=== PATIENT | female | born 1960 | race Two or more races ===

== ENCOUNTER 2018-07-15 09:39 | Emergency (ER) | payer SELFPAY ==
[~2018-07-15] VITALS: Ht 160 cm; Wt 93.0 kg
[2018-07-15 09:53] VITALS: BP 156/98
[2018-07-15] MEDS ORDERED: Tylenol #3 tab (300mg/30mg) PO ONE (10:00)
--- NOTE | 2018-07-15 10:25 | Emergency Room Report ---
History of Present Illness General Chief Complaint: Multiple Trauma/Fall Source: Patient, Family Member Present Illness HPI 58-year-old female presents ED for evaluation. Patient presents status post trip and fall today. Landing on her right elbow. Denies hitting her head or LOC. Complaining of right elbow pain. Throbbing, 10 out of 10, nonradiating. Denies any other injuries. No other aggravating relieving factors. Denies any other associated symptoms Allergies: Coded Allergies: No Known Allergies (Unverified , 07/15/18) Patient History Past Medical History: HTN Past Surgical History: none Pertinent Family History: none Social History: Denies: smoking, alcohol use, drug use Last Menstrual Period: yrs ago Now: No Immunizations: UTD Reviewed Nursing Documentation: PMH: Agreed; PSxH: Agreed Nursing Documentation-PMH Past Medical History: No History, Except For Hx Hypertension: Yes Review of Systems All Other Systems: negative except mentioned in HPI Physical Exam Vital Signs Date Time Temp Pulse Resp B/P (MAP) Pulse Ox O2 Delivery O2 Flow Rate FiO2 07/15/18 09:46 98.1 85 18 164/109 96 Room Air Sp02 EP Interpretation: reviewed, normal General Appearance: no apparent distress, alert, GCS 15, non-toxic Head: normocephalic Eyes: bilateral eye normal inspection, bilateral eye PERRL ENT: normal ENT inspection Neck: normal inspection Respiratory: normal inspection Cardiovascular #1: normal inspection Gastrointestinal: normal inspection Rectal: deferred Genitourinary: no CVA tenderness Musculoskeletal: decreased range of motion - R elbow, tender Neurologic: alert, oriented x3, responsive, motor strength/tone normal, sensory intact, speech normal Psychiatric: normal inspection Skin: normal inspection Lymphatic: normal inspection Medical Decision Making Diagnostic Impression: Primary Impression: Elbow fracture Qualified Codes: S42.401A - Unspecified fracture of lower end of right humerus , initial encounter for closed fracture ER Course Hospital Course 58-year-old F presents to ED complaining of R elbow pain s/p fall Differential diagnoses include: Fracture, dislocation, sprain, contusion Clinical course Patient placed on stretcher. After initial history and physical, I ordered pain medications and Xrays of R elbow Xrays read shows complex distal humeral fx. placed in posterior long splint Discussed findings with patient and daughter. Safe for discharge and close outpatient follow-up. We'll provide ortho referrals Diagnosis - elbow fracture Stable and discharged to home with prescription for Tylenol #3. apply ice, keep elevated. Followup with PMD/ortho. Return to ED if symptoms recur or worsen Other X-Ray Diagnostic Results Other X-Ray Diagnostic Results : X-Ray ordered: R elbow # of Views/Limited Vs Complete: 3 View Indication: Pain EP Interpretation: Yes Interpretation: no dislocation, other - complex distal humerus fx Impression: Other - fx Electronically Signed by: Electronically signed by Brian Estevez MD Last Vital Signs Date Time Temp Pulse Resp B/P (MAP) Pulse Ox O2 Delivery O2 Flow Rate FiO2 07/15/18 09:53 98.2 82 18 156/98 98 Room Air Status: improved Disposition: HOME, SELF-CARE Condition: Stable Scripts Acetaminophen With Codeine (T#3) (TYLENOL #3 TAB*) Y Tab 1 TAB ORAL Q8H PRN for For Pain, #12 TAB Prov: Brian Estevez MD 07/15/18 Referrals: NON PHYSICIAN (PCP) Brian Estevez MD Jul 15, 2018 10:25
--- NOTE | 2018-07-15 10:35 | Diagnostic Imaging Report ---
Indications:Right elbow pain Technique: Three or 4 views of the and elbow Comparison: None Findings: There is a complex fracture of the distal humerus. This appears to be a supracondylar fracture with extension into the joint space both medially and laterally. No definite ulnar radial fracture. There is evidence of a joint effusion Impression: Positive for complex distal humeral fracture Findings discussed with by phone with Dr. Estevez in the emergency room at the time of interpretation
[2018-07-15] MEDS ORDERED: ACETAMINOPHEN-1 EAC1 ORAL (11:15)
[2018-07-15 11:26] VITALS: BP 132/84
== END 2018-07-15 11:27 | disposition home or self-care (01) ==
LOC: EMR 10:14
DX: S42.401A Unspecified fracture of lower end of right humerus, initial encounter for closed fracture (principal); W01.0XXA Fall on same level from slipping, tripping and stumbling without subsequent striking against object, initial encounter; Y92.9 Unspecified place or not applicable; I10 Essential (primary) hypertension
CPT/HCPCS: 29105; 99283